=== PATIENT | female | born 1965 | race Hispanic/Latino ===

== ENCOUNTER → 2018-07-30 | Outpatient (CLI) | payer OTHER ==
--- NOTE | 2018-07-30 17:57 | Diagnostic Imaging Report ---
Exam: Left knee series; 3 views History: Pain Comparison: None available Findings: Bones are osteopenic. There is a small joint effusion. Spurring of the superior aspect of the patella is present. Apparent erosive change involving the superior portion of the fibula best suggested on the lateral view. MRI of the knee may provide additional information. Impression: 1. Joint effusion with mild degenerative changes. 2. Possible erosion of the superior aspect of the patella. Signed by: Dr. Israel Hernandez DO on 07/30/2018 5:53 PM
--- NOTE | 2018-07-30 18:04 | Diagnostic Imaging Report ---
Lumbar spine series, 5 views. History: <Pain>. Comparison: <None available>. Discussion: The soft tissues are unremarkable. The alignment of the lumbar spine is normal. There is no evidence of fracture, spondylolisthesis or spondylolysis. There is mild spurring of the lumbar spine. The intervertebral disc spaces are within normal limits. Large calcified uterine fibroid noted. IMPRESSION: Mild degenerative spurring of the spine. Large calcified uterine fibroid. Signed by: Dr. Israel Hernandez DO on 07/30/2018 6:01 PM
--- NOTE | 2018-07-30 18:06 | Diagnostic Imaging Report ---
Exam: Sacrococcygeal series; 2 views History: Pain Comparison: None available Findings: No fracture or dislocation is noted. There is no evidence of bony erosion. Large uterine fibroid is present. Impression: Large uterine fibroid. Signed by: Dr. Israel Hernandez DO on 07/30/2018 6:03 PM
== END ==
LOC: RAD 16:09
PROVIDERS: ATTEND Internal Medicine
DX: M47.816 Spondylosis without myelopathy or radiculopathy, lumbar region (principal); M17.12 Unilateral primary osteoarthritis, left knee
CPT/HCPCS: 72110; 72220

== ENCOUNTER → 2019-02-12 | Outpatient (CLI) | payer OTHER | LOC: MAMMO 15:22 | PROVIDERS: ATTEND Internal Medicine | DX: Z12.31 Encounter for screening mammogram for malignant neoplasm of breast (principal) | CPT/HCPCS: 77067 ==

== ENCOUNTER → 2019-07-30 | Outpatient (CLI) | payer OTHER ==
--- NOTE | 2019-07-30 15:24 | Diagnostic Imaging Report ---
Ultrasound female pelvis Clinical diagnosis: No abdominal pain Last menstrual period: Postmenopausal. The patient is A 1 miscarriage and not on hormone replacement therapy. There is no history of another prior pelvic surgery. Comparison: None Technique: Multiple transaxial and longitudinal images were obtained through the pelvis. Low MHz transducer(s) was(were) utilized transabdominally and endovaginally. Color Doppler and spectral waveform analysis images were submitted to evaluate for blood flow. Multiple images were submitted for interpretation. Report: Uterus: 8 x 6.4 x 6 cm. Heterogeneous echotexture. Multiple focal calcifications with posterior acoustic shadowing. These are suggestive of fibroids and some with calcification. The endometrial stripe is 16 mm. This is thickened for a postmenopausal female. Right Ovary: 2.5 x 1.9 x 2.6 cm. Small calcific foci are seen in the right ovary. No other mass or cyst. Left Ovary: Not visualized transabdominally or transvaginally. Obscured by bowel gas. Free Fluid: Absent Impression: Large uterus with fibroids some of them with degenerative calcification. There is endometrial stripe thickening which is abnormal for this age group. Left ovary is not visualized. Right ovary has small calcifications. Gynecologic evaluation should be considered. Signed by: Vikash Prabhakar MD on 07/30/2019 3:21 PM
== END ==
LOC: US 13:36
PROVIDERS: ATTEND Internal Medicine
DX: R10.30 Lower abdominal pain, unspecified (principal)
CPT/HCPCS: 76830; 76856